=== PATIENT | female | born 1985 | race African-American/Black ===

== ENCOUNTER 2023-01-09 14:19 | Emergency (ER) | payer OTHER ==
[2023-01-09 14:55] LABS: #Eosinphils 0.1 10x3/uL (0.0-0.5); #Monocytes 0.4 10x3/uL (0.0-1.1); #Neutrophils 3.6 10x3/uL (1.5-8.4); %Basophils 0.3 % (0.0-2.0); %Lymphocytes 32.2 % (18.0-47.0); %Neutrophils 59.2 % (40.0-75.0); Hemoglobin 12.9 g/dL (12.0-15.5); Mean Corpuscular HGB CONC 33.5 g/dL (32.0-36.0); Mean Corpuscular Hemoglobin 29.4 pg (27.0-33.0); Mean Corpuscular Volume 87.7 fl (81.6-98.3); Mean Platelet Volume 10.1 fl (7.4-10.4); Platelet Count 242 10x3/uL (150-450); RBC Distribution Width 12.7 % (11.5-14.5); Red Blood Cell (RBC) Count 4.39 10x6/uL (3.90-5.03)
[2023-01-09 15:09] LABS: ALT (SGPT) 14 U/L (8-55); AST (SGOT) 14 U/L (5-34); Albumin 4.1 g/dL (3.5-5.0); Alkaline Phosphatase 35 U/L (40-110); Anion Gap 13 mmol/L (10-20); BUN (Urea Nitrogen) 6 mg/dL (7.0-18.7); Bilirubin, Total 0.4 mg/dL (0.2-1.2); Calc. Creatinine Clearance 0 mL/min (70-130); Calcium 9.1 mg/dL (7.8-10.44); Carbon Dioxide 23 mmol/L (22-29); Chloride 105 mmol/L (98-107); Estimated GFR 110; Globulin 3.1 g/dL (2.4-3.5); Glucose 101 mg/dL (70-105); Lipase 26 U/L (8-78); Potassium 3.8 mmol/L (3.5-5.1); Protein, Total 7.2 g/dL (6.0-8.3); Sodium 137 mmol/L (136-145)
[2023-01-09 15:31] LABS: Bilirubin Neg (Negative); Blood, Urine Negative (Negative); Glucose, Urine (Dipstick) Normal (Negative); Ketone, Urine Negative (Negative); Leukocyte 25 (Negative); Nitrite Negative (Negative); Protein, Urine (Dipstick) Negative (Neg-Trace); Urobilinogen Normal mg/dL (Less than 2)
[2023-01-09 15:44] LABS: Bacteria/HPF None Seen HPF (None Seen); Clarity Hazy (Clear); RBC/HPF None Seen HPF (0-3); WBC/HPF None Seen HPF (0-3)
== END 2023-01-09 18:53 | disposition home or self-care (01) ==
LOC: CSHERS 14:19
DX: O30.001 Twin pregnancy, unspecified number of placenta and unspecified number of amniotic sacs, first trimester (principal); Z3A.01 Less than 8 weeks gestation of pregnancy
CPT/HCPCS: 36415; 76856; 80053; 81003; 81015; 83605; 83690; 84702; 85025; 86900; 86901

== ENCOUNTER 2023-05-11 22:30 | Day surgery (SDC) | payer BC, OTHER ==
[2023-05-11 22:49] VITALS: BMI 35.5
[2023-05-12] MEDS ORDERED: hydrALAZINE 20 MG/ML VIAL SLOW IVP PRN
== END 2023-05-12 00:20 | disposition home or self-care (01) ==
LOC: CSHLD/OP 22:30
PROVIDERS: ATTEND Family Medicine
DX: O9A.212 Injury, poisoning and certain other consequences of external causes complicating pregnancy, second trimester (principal); R10.9 Unspecified abdominal pain; O99.212 Obesity complicating pregnancy, second trimester; E66.9 Obesity, unspecified; Z3A.24 24 weeks gestation of pregnancy; W19.XXXA Unspecified fall, initial encounter
CPT/HCPCS: 99282

== ENCOUNTER 2023-06-18 23:54 | Day surgery (SDC) | payer BC, OTHER ==
[2023-06-19 00:08] VITALS: BMI 35.5
== END 2023-06-19 01:35 | disposition home or self-care (01) ==
LOC: CSHLD/OP 23:54
PROVIDERS: ATTEND Family Medicine
DX: O99.891 Other specified diseases and conditions complicating pregnancy (principal); R10.9 Unspecified abdominal pain; N80.9 Endometriosis, unspecified; Z79.899 Other long term (current) drug therapy; Z3A.30 30 weeks gestation of pregnancy
CPT/HCPCS: 99282

== ENCOUNTER 2023-07-12 20:28 | Day surgery (SDC) | payer BC, OTHER ==
[2023-07-12 21:16] VITALS: BMI 37.0
[2023-07-12] MEDS ORDERED: hydrALAZINE 20 MG/ML VIAL SLOW IVP PRN (21:52)
[2023-07-12] MEDS ORDERED: Cyclobenzaprine 10 MG TAB PO SCH (22:30)
== END 2023-07-13 00:55 | disposition home or self-care (01) ==
LOC: CSHLD/OP 20:28
PROVIDERS: ATTEND Student in an Organized Health Care Education/Training Program
DX: O99.891 Other specified diseases and conditions complicating pregnancy (principal); R10.2 Pelvic and perineal pain; Z3A.00 Weeks of gestation of pregnancy not specified
CPT/HCPCS: 76819; 99282

== ENCOUNTER 2023-07-18 11:50 | Day surgery (SDC) | payer BC, OTHER ==
[2023-07-18 12:20] VITALS: BMI 36.9
== END 2023-07-18 14:05 | disposition home or self-care (01) ==
LOC: CSHLD/OP 11:50
PROVIDERS: ATTEND Obstetrics & Gynecology
DX: O36.8130 Decreased fetal movements, third trimester, not applicable or unspecified (principal); O24.419 Gestational diabetes mellitus in pregnancy, unspecified control; O99.213 Obesity complicating pregnancy, third trimester; O09.523 Supervision of elderly multigravida, third trimester; Z3A.34 34 weeks gestation of pregnancy

== ENCOUNTER 2023-07-31 02:40 | Day surgery (SDC) | payer BC, OTHER ==
[2023-07-31 03:02] VITALS: BMI 37.5
[2023-07-31] MEDS ORDERED: hydrALAZINE 20 MG/ML VIAL SLOW IVP PRN (03:41)
[2023-07-31] MEDS ORDERED: Lactated Ringer's 1,000 ML IV SCH (03:45)
[2023-07-31] MEDS ORDERED: Acetaminophen 500 MG TAB PO SCH (04:00)
== END 2023-07-31 05:55 | disposition home or self-care (01) ==
LOC: CSHLD/OP 02:40
PROVIDERS: ATTEND Family Medicine
DX: O47.03 False labor before 37 completed weeks of gestation, third trimester (principal); O99.213 Obesity complicating pregnancy, third trimester; E66.9 Obesity, unspecified; Z3A.00 Weeks of gestation of pregnancy not specified; Z79.82 Long term (current) use of aspirin
CPT/HCPCS: 36416; 87070; 87205; 99283

== ENCOUNTER 2023-08-03 01:19 | Inpatient (IN) | payer OTHER ==
[2023-08-03 01:52] VITALS: BMI 37.5
[2023-08-03] MEDS ORDERED: hydrALAZINE 20 MG/ML VIAL SLOW IVP PRN ×3 (02:38→06:39)
[2023-08-03] MEDS ORDERED: Lactated Ringer's 1,000 ML IV SCH ×2 (02:45→04:45)
[2023-08-03] MEDS ORDERED: Cyclobenzaprine 10 MG TAB PO SCH ×2 (03:00→21:00)
[2023-08-03] MEDS ORDERED: Promethazine HCl 25 MG/ML VIAL IM PRN ×2 (04:05→05:28)
[2023-08-03] MEDS ORDERED: Lidocaine 1% (PF) 30 ML VIAL SC PRN (04:05)
[2023-08-03] MEDS ORDERED: Ondansetron PF 4 MG/2 ML Vial IVP PRN ×3 (04:05→06:39)
[2023-08-03] MEDS ORDERED: Ibuprofen 800 MG TAB PO PRN (04:07)
[2023-08-03] MEDS ORDERED: Docusate 100 MG CAP PO PRN (04:07)
[2023-08-03] MEDS ORDERED: Acetaminophen 500 MG TAB PO PRN (04:07)
[2023-08-03] MEDS ORDERED: fentaNYL 50 mcg/mL 1 mL Vial SLOW IVP PRN (04:07)
[2023-08-03] MEDS ORDERED: fentaNYL 50 mcg/mL 1 mL Vial ONE (04:24)
[2023-08-03] MEDS ORDERED: Oxytocin 30 units/NS 500 ML 500 ML IV SCH ×2 (04:30→06:45)
[2023-08-03] MEDS ORDERED: Penicillin G Potassium 5 MILL.UNITS in Sodium Chloride 0.9% 100 ML IVPB SCH (04:30)
[2023-08-03] MEDS ORDERED: fentaNYL/Ropivacaine Epidural 100 ML ONE (04:32)
[2023-08-03 04:39] LABS: Hematocrit 39.6 % (34.9-44.5); Hemoglobin 13.3 g/dL (12.0-15.5); Mean Corpuscular HGB CONC 33.6 g/dL (32.0-36.0); Mean Corpuscular Hemoglobin 28.4 pg (27.0-33.0); Mean Corpuscular Volume 84.4 fl (81.6-98.3); Mean Platelet Volume 11.1 fl (7.4-10.4); Platelet Count 209 10x3/uL (150-450); RBC Distribution Width 14.6 % (11.5-14.5); Red Blood Cell (RBC) Count 4.69 10x6/uL (3.90-5.03); White Blood Cell (WBC) Count 9.7 10x3/uL (3.5-10.5)
[2023-08-03 05:02] LABS: HBSAg Index 0.19 S/CO (0-0.99); Hep B Surf Ag - L&D Non-Reactive S/CO (NonReactive)
[2023-08-03 05:03] LABS: Syphilis Antibody Nonreactive (Nonreactive); Syphilis Antibody Index 0.04 S/CO (<1.00 Non-Reactive)
[2023-08-03] MEDS ORDERED: Naloxone HCl 0.4 mg/ml Vial IVP PRN ×2 (05:28)
[2023-08-03] MEDS ORDERED: ePHEDrine Sulfate 50 MG/10 ML VIAL SLOW IVP PRN (05:28)
[2023-08-03] MEDS ORDERED: Moisturizing Cream (Eucerin) 113 GM JAR TOP PRN (05:28)
[2023-08-03] MEDS ORDERED: Acetaminophen 325 MG TAB PO PRN (05:28)
[2023-08-03] MEDS ORDERED: Lactated Ringer's 500 ML IV PRN (05:28)
[2023-08-03] MEDS ORDERED: diphenhydrAMINE 50 MG/ML VIAL IVP PRN (05:28)
[2023-08-03] MEDS ORDERED: Communication Order-Pharmacy FS SCH (05:30)
[2023-08-03] MEDS ORDERED: fentaNYL 2 mcg/Ropivacaine 0.2% Epidural 100 ML CADD EPIDURAL SCH ×2 (05:30)
[2023-08-03] MEDS ORDERED: Misoprostol 100 MCG TAB VAG SCH (06:15)
[2023-08-03] MEDS ORDERED: Methylergonovine 0.2 MG/ML VIAL ONE (06:23)
[2023-08-03] MEDS ORDERED: Misoprostol 200 MCG TAB ONE (06:23)
[2023-08-03] MEDS ORDERED: Bisacodyl 10 MG SUPP PR PRN (06:39)
[2023-08-03] MEDS ORDERED: Misoprostol 200 MCG TAB VAG PRN (06:39)
[2023-08-03] MEDS ORDERED: Milk Of Magnesia 30 ML UDCUP PO PRN (06:39)
[2023-08-03] MEDS ORDERED: Boostrix 0.5 ML (Tdap) VIAL (>/=7 yrs of age) IM ONE (06:39)
[2023-08-03] MEDS ORDERED: Bupivacaine PF 0.5% 30 ML VIAL ONE (08:00)
[2023-08-03] MEDS ORDERED: Penicillin G 2.5 MILL.units 2.5 MILL.UNITS in Premix 1 BAG IVPB SCH (08:30)
[2023-08-03] MEDS: Docusate 100 MG CAP PO SCH ×2 (11:43→21:48)
[2023-08-03] MEDS: Ferrous Sulfate 325 MG TAB PO SCH ×2 (11:43→16:08)
[2023-08-03] MEDS: Prenatal Vitamin 1 TAB PO SCH (11:43)
[2023-08-03] MEDS: Ibuprofen 800 MG TAB PO SCH ×2 (13:11→21:48)
[2023-08-03] MEDS ORDERED: Cyclobenzaprine 10 MG TAB PO PRN (20:52)
[2023-08-04] MEDS: Ibuprofen 800 MG TAB PO SCH ×3 (06:10→21:58)
[2023-08-04] MEDS: Prenatal Vitamin 1 TAB PO SCH (08:39)
[2023-08-04] MEDS: Docusate 100 MG CAP PO SCH ×2 (08:39→21:59)
[2023-08-04] MEDS: Ferrous Sulfate 325 MG TAB PO SCH ×2 (08:42→17:04)
[2023-08-04 21:19] VITALS: TEMP 97.9
[2023-08-05] MEDS: Ibuprofen 800 MG TAB PO SCH (05:35)
[2023-08-05 08:28] VITALS: BP 132/73
[2023-08-05] MEDS: Prenatal Vitamin 1 TAB PO SCH (09:15)
[2023-08-05] MEDS: Docusate 100 MG CAP PO SCH (09:15)
[2023-08-05] MEDS: Ferrous Sulfate 325 MG TAB PO SCH (09:15)
== END 2023-08-05 10:15 | disposition home or self-care (01) | DRG 805 ==
LOC: CSHLD/OP 01:19 → CSHLD 04:07 → CSHPP 09:00
PROVIDERS: ADMIT Family Medicine; ATTEND Family Medicine
PROC: 10E0XZZ Delivery of Products of Conception, External Approach (ICD-10-PCS; principal; 2023-08-03)
DX: O24.425 Gestational diabetes mellitus in childbirth, controlled by oral hypoglycemic drugs (principal); O45.93 Premature separation of placenta, unspecified, third trimester; Z37.0 Single live birth; E66.9 Obesity, unspecified; O99.214 Obesity complicating childbirth; O99.824 Streptococcus B carrier state complicating childbirth; O42.02 Full-term premature rupture of membranes, onset of labor within 24 hours of rupture; Z79.82 Long term (current) use of aspirin; Z3A.36 36 weeks gestation of pregnancy; Z79.84 Long term (current) use of oral hypoglycemic drugs
CPT/HCPCS: 36415; 36416; 85027; 86780; 86850; 86900; 86901; 87340; J2540; J2590; J3010; J3490; S0020